=== PATIENT | female | born 1945 | race Caucasian/White ===

== ENCOUNTER → 2018-06-07 | Outpatient (CLI) | payer OTHER, MEDICARE ==
[~2018-06-07] MED LIST: ASPIRIN325 PO; CELEXA 20 MG TA20 M1 PO; CHROMAGEN CAPSU1 CAP PO; EVISTA PO; ZOCOR40 MG PO
== END ==
LOC: M.RAD 13:08
DX: Z12.31 Encounter for screening mammogram for malignant neoplasm of breast (principal)